=== PATIENT | male | born 1940 | race Caucasian/White ===

== ENCOUNTER 2016-11-15 07:54 | Day surgery (SDC) | payer OTHER ==
[2016-11-15] VITALS (7 sets, daily range): BP systolic 99–157; BP diastolic 56–73; PULSE 53–58; RESP 16–20; TEMP 97.7–98.9; O2SAT 92–98
[~2016-11-15] VITALS: Ht 175.3 cm; Wt 88.2 kg
[~2016-11-15 07:54] MED LIST: ATOR40TA PO; FERR324T4 PO; ISOS30TA3 PO; LISI-360 PO; METO50TA PO; PROS5TAB2 PO; ST J81CH PO
[2016-11-15] MEDS ORDERED: SODIUM CHLORIDE 5 ML FLUSH PRN IVF (08:45)
[2016-11-15] MEDS ORDERED: ASPI81TA11 PO (08:53)
[2016-11-15] MEDS ORDERED: LISI-515 PO (08:53)
[2016-11-15] MEDS ORDERED: ISOS30TA3 PO (08:53)
[2016-11-15] MEDS ORDERED: ATOR40TA16 PO (08:53)
[2016-11-15] MEDS ORDERED: FERR325T PO (08:53)
[2016-11-15] MEDS ORDERED: METO50TA11 PO (08:53)
[2016-11-15] MEDS ORDERED: SODIUM CHLORIDE 5 ML FLUSH BID IVF SCH (09:00)
[2016-11-15] MEDS ORDERED: SODIUM CHLOR 0.9% 1000 ML IV SCH (09:00)
[2016-11-15] MEDS ORDERED: LIDOCAINE 1%/EPINEPHrine 1:100,000 SOLN 20 ML VIAL ONE (10:09)
[2016-11-15] MEDS ORDERED: MIDAZOLAM HCL 5 MG/5 ML VIAL ONE (10:15)
[2016-11-15] MEDS ORDERED: fentaNYL CITRATE 250 MCG/5 ML AMP ONE (10:15)
[2016-11-15] MEDS ORDERED: ONDANSETRON HCL 4 MG/2 ML VIAL ONE (12:20)
--- NOTE | 2016-11-15 13:31 | RADRPT ---
EXAM DATE/TIME: 11/15/2016 10:44 [place] COMPARISON: CHEST EXPIRATION ONLY, May 02, 2016, 13:22. CT NEEDLE BIOPSY LUNG, RIGHT, May 02, 2016, 10:00. INDICATIONS : Left abdominal masses, supra renal and infra renal. There are 2 PET positive masses, both of which h ave increased in size. SEDATION TIME: 20 minutes BIOPSY SITE: Left Abdomen MEDICATION(S): 1.) 2 mg midazolam (Versed) IV 2.) 100 mcg fentanyl (Sublimaze) IV DEVICE(S): 1.) 18 gauge Mahmood blunt needle 2.) 20 gauge Temno core biopsy needle MEDICAL HISTORY : Renal cell carcinoma. Hypertension. Cardiovascular disease. SURGICAL HISTORY : None. ENCOUNTER: Initial ACUITY: 1 day PAIN SCORE: 0/10 LOCATION: Left Abdomen A total of four core specimen(s) were obtained and sent to the laboratory for pathologic evaluation. PROCEDURE: 1. CT guided abdomen biopsy. 2. Conscious sedation with continuous EKG and oximetry monitoring. 3. EKG and oximetry remained stable throughout the procedure. Prior to the procedure informed consent was obtained. Any appropriate prior imaging studies were rev iewed. The site was prepped in a sterile fashion. Full sterile technique was used, including cap, mask, asa rile gloves and gown and a large sterile sheet. Hand hygiene and 2% chlorhexidine and/or betadine/al cohol prep was utilized per protocol for cutaneous antisepsis. The skin and subcutaneous tissues wer e infiltrated with local anesthetic solution. Under CT guidance an 18 gauge was placed down to the PET positive mass in the suprarenal fossa see ab ove the known tumor. 2 cores were obtained. Needle was then repositioned and 2 cores obtained of the PET positive peritoneal mass in the right mi dabdomen. Follow-up CT scan reveals no hemorrhage. The patient tolerated the procedure well and there were no complications. The patient was returned to the Radiology Outpatient Unit in stable condition. CONCLUSION: Uncomplicated CT guided biopsy. Pathology is pending. Pathology samples were labeled separately. Berto Solomon MD FACR on November 15, 2016 at 13:24 Board Certified Radiologist. This report was verified electronically.
== END 2016-11-15 14:00 | disposition home or self-care (01) ==
LOC: HRAD 07:54 → HRIP 07:55 → EDSTATUS 08:00 → HRAD 14:00
DX: R19.00 Intra-abdominal and pelvic swelling, mass and lump, unspecified site (principal); C64.9 Malignant neoplasm of unspecified kidney, except renal pelvis; C78.01 Secondary malignant neoplasm of right lung; I10 Essential (primary) hypertension; I25.10 Atherosclerotic heart disease of native coronary artery without angina pectoris
CPT/HCPCS: 49180; 77012; 88307; 99152; 99153; J2250; J2405; J3010; J7030; 88305